=== PATIENT | male | born 1995 | race African-American/Black ===

== ENCOUNTER 2025-04-09 14:36 | Emergency (ER) | payer OTHER, SELFPAY ==
[2025-04-09] VITALS (28 sets, daily range): BP systolic 109–161; BP diastolic 75–110; BMI 32.0
[2025-04-09 15:01] LABS: % Basophils 0.4 % (0-2); % Eosinophils 1.6 % (0-6); % Immature Granulocytes 0.4 % (0-0.5); % Lymphocytes 46.8 % (20.5-51.1); % Monocytes 8.1 % (1.7-9.3); % Neutrophils 42.7 % (42.2-75.2); Absolute Eosinophils 0.1 10^3/uL (0-0.7); Absolute Lymphocytes 2.7 10^3/uL (1.2-3.4); Absolute Monocytes 0.5 10^3/uL (0.1-0.6); Absolute Neutrophils 2.5 10^3/uL (1.4-6.5); Hematocrit 41.9 % (39.0-52.0); Hemoglobin 14.8 g/dL (13.0-18.0); Mean Corp Hgb Conc. 35.3 g/dL (33.0-37.0); Mean Corpuscular Volume 90.5 fL (80.0-94.0); Mean Platelet Volume 8.7 fL (7.4-10.4); Nucleated Red Blood Cells % 0 % (-); Platelet Count 316 10^3/uL (130-400); Red Blood Cell Count 4.63 10^6/uL (4.70-6.10); Red Cell Dist. Width 12.1 % (11.5-14.5); White Blood Cell Count 5.7 10^3/uL (4.8-10.8)
[2025-04-09 15:24] LABS: ALT (SGPT) 53 U/L (0-50); AST (SGOT) 28 U/L (17-59); Albumin 4.8 g/dl (3.5-5.0); Alkaline Phosphatase 63 U/L (38-126); Blood Urea Nitrogen 11 mg/dl (9-20); Calcium 10.3 mg/dl (8.4-10.2); Carbon Dioxide 32 mmol/L (22-30); Chloride 104 mmol/L (98-107); Glucose 102 mg/dl (70-99); Potassium 4.3 mmol/L (3.5-5.1); Sodium 143 mmol/L (135-145); Total Bilirubin 0.6 mg/dl (0.2-1.3); Total Protein 7.9 g/dl (6.3-8.2); eGFR > 60.00
[2025-04-09 15:35] LABS: Troponin I 0.013 ng/ml
--- NOTE | 2025-04-09 18:08 | ED.GENMED ---
History of Present Illness
<SAULO Almaraz Last Filed: 04/10/25 00:10>
General
Chief Complaint: Chest Pain
Source: patient
Exam Limitations: none
Time Seen by Provider: 04/09/25 17:28
Nursing documentation reviewed up to this point in time: agreed with
History of Present Illness
History of Present Illness:
see MDM
Phy Exam
<SAULO Almaraz Last Filed: 04/10/25 00:10>
Physical Exam
Physical Exam:
GENERAL: Alert , in no apparent distress
EYE: pupils equal and reactive
NECK: Supple
ENT: o/p clr, mmm.
CARDIAC: you m . Irregularly irregular, rate controlled
LUNGS: Clear breath sounds bilaterally, no acute respiratory distress, no wheezes/rales/rhonchi
ABDOMEN: Soft, without focal tenderness, no r/g, no cvat, normal bowel sounds
NEUROLOGICAL: Alert and oriented, no focal neuro deficits
SKIN: Warm and dry, skin intact.
MUSCULOSKELETAL: No edema, well perfused. neg alisha's sign
PSYCH: Normal and appropriate interaction.
Scores
<SAULO Almaraz Last Filed: 04/10/25 00:10>
Heart Score for Chest Pain Patients
STEMI patient?: No
History: Slightly or Non-Suspicious
ECG: Nonspecific Repolarization
Age: </= 45 years
Risk Factors: No Risk Factors
Troponin: </= Normal Limit
Heart Score for Chest Pain Patients: 1
Heart Score Risk: 2.5% MACE over next 6 weeks
Course
<SAULO Almaraz Filed: 04/10/25 00:10>
Orders/Labs/Results
Orders:
Orders
04/09/25 14:37
ECG [Electrocardiogram (*1)] Urgent
Reason for Study: Chest Pain
EKG- Treatment ONCE
04/09/25 14:53
Complete Blood Count/With Diff Urgent
Comprehensive Metabolic Panel Urgent
TSH Reflex To Free T4 Urgent
Comment: ADD ON
Troponin I Urgent
04/09/25 17:42
CT Chest PE Study Urgent
Comment:
Reason For Exam: new osnet afib, cp
04/09/25 18:09
Add On- LAB Urgent
Tests Added?: tsh reflex t4
04/09/25 20:25
Propofol [Diprivan] 20 ml .ROUTE .STK-MED
04/09/25 20:54
EKG [Electrocardiogram (*1)] Urgent
Reason for Study: Atrial Fibrillation
EKG- Treatment ONCE
Abnormal Lab Results
04/09/25
14:53
RBC 4.63 L 10^6/uL
(4.70-6.10)
MCH 32.0 H pg
(27.0-31.0)
Carbon Dioxide 32 H mmol/L
(22-30)
Glucose 102 H mg/dl
(70-99)
Calcium 10.3 H mg/dl
(8.4-10.2)
ALT 53 H U/L
(0-50)
04/09/25 14:53
04/09/25 14:53
Vital Signs
Initial and Last Documented VS:
Initial Vital Signs
Temp Resp Pulse Ox
36.8 C 18 100
04/09/25 14:44 04/09/25 14:44 04/09/25 14:44
Last Documented Vital Signs
Temp Pulse Resp BP Pulse Ox
36.8 C 69 16 134/95 100
04/09/25 21:02 04/09/25 21:19 04/09/25 21:19 04/09/25 21:40 04/09/25 21:19
<Taty Sanchez MD - Last Filed: 04/09/25 20:57>
Orders/Labs/Results
Orders:
Orders
04/09/25 14:37
ECG [Electrocardiogram (*1)] Urgent
Reason for Study: Chest Pain
EKG- Treatment ONCE
04/09/25 14:53
Complete Blood Count/With Diff Urgent
Comprehensive Metabolic Panel Urgent
TSH Reflex To Free T4 Urgent
Comment: ADD ON
Troponin I Urgent
04/09/25 17:42
CT Chest PE Study Urgent
Comment:
Reason For Exam: new osnet afib, cp
04/09/25 18:09
Add On- LAB Urgent
Tests Added?: tsh reflex t4
04/09/25 20:25
Propofol [Diprivan] 20 ml .ROUTE .STK-MED
04/09/25 20:54
EKG [Electrocardiogram (*1)] Urgent
Reason for Study: Atrial Fibrillation
EKG- Treatment ONCE
Abnormal Lab Results
04/09/25
14:53
RBC 4.63 L 10^6/uL
(4.70-6.10)
MCH 32.0 H pg
(27.0-31.0)
Carbon Dioxide 32 H mmol/L
(22-30)
Glucose 102 H mg/dl
(70-99)
Calcium 10.3 H mg/dl
(8.4-10.2)
ALT 53 H U/L
(0-50)
04/09/25 14:53
04/09/25 14:53
Vital Signs
Initial and Last Documented VS:
Initial Vital Signs
Temp Resp Pulse Ox
36.8 C 18 100
04/09/25 14:44 04/09/25 14:44 04/09/25 14:44
Last Documented Vital Signs
Temp Pulse Resp BP Pulse Ox
36.8 C 69 16 134/95 100
04/09/25 21:02 04/09/25 21:19 04/09/25 21:19 04/09/25 21:40 04/09/25 21:19
Procedures
<Kaylin Strickland PA-C - Last Filed: 04/10/25 00:10>
Moderate Sedation
ASA Risk Score: Class I
Chart and allergies reviewed: Yes
Consent for anesthesia obtained: Yes
Time out completed (validating right patient & procedure): Yes
Moderate Sedation Start Time(when first medication is given): 20:45
History of difficult intubation: No
Airway free of obstruction: Yes
Patient has a gag reflex: Yes
Patient is able to open mouth: Yes
Patient has no dentures: Yes
Patient has no loose teeth: Yes
Medication administered by Provider during Moderate Sedation: IV Propofol (mg) (70)
Total dose administered: 70
Time drug administered: 20:47
Moderate Sedation Procedure End Time: 20:57
<Kaylin Strickland PA-C - Last Filed: 04/10/25 00:10>
MDM/Problems Addressed
Differential Diagnosis Includes:
se4e MDM
MDM/Problems Addressed:
Note:
CHIEF COMPLAINT(S)
Palpitations and shortness of breath.
HISTORY OF PRESENT ILLNESS
The patient is a 29-year-old male presenting with sudden onset palpitations and difficulty breathing. Symptoms began at approximately 10:30 AM while the patient was seated at a table. The patient reports that he was awake prior to 10:30 AM and
experienced these symptoms suddenly without any prior similar episodes over the past month. The patient denies any significant chest pain but describes a sensation of harder breathing. He does not recall any previous consultation with a
sales office administrator. He mentions the use of a CPAP machine occasionally but without any formal diagnosis of sleep apnea. The patient reports a past medical event in childhood involving a minor heart murmur, for which he may have seen a sales office administrator. He
leads an active lifestyle, running somewhat regularly, and has not smoked but consumes alcohol, averaging three drinks approximately five days a week.
The blood work conducted thus far appears normal. The patient is suspected to experience new-onset atrial fibrillation. Further evaluation with a CT scan of the chest with intravenous contrast is planned to rule out pulmonary embolism, a possible
cause of atrial fibrillation in the context of chest tightness and increased risk for stroke. The patient is currently stable with controlled heart rate and stable blood pressure. The possibility of performing electrical cardioversion was discussed,
should he not spontaneously revert to normal sinus rhythm, to alleviate symptoms and restore rhythm.
SOCIAL HISTORY
- Alcohol use: Approximately three drinks, five days a week.
- Non-smoker.
PHYSICAL EXAM
- Appearance: The patient appears alert and oriented.
- Nursing notes reviewed and vital signs reviewed.
PROBLEM LIST
- Acute: Atrial fibrillation with rapid ventricular response.
PLAN
- Perform a CT scan of the chest with intravenous contrast to rule out pulmonary embolism.
- Consult with a sales office administrator to determine the appropriate management plan, potentially including electrical cardioversion.
- Monitor heart rate and rhythm, ensuring the patients stability.
DIFFERENTIAL DIAGNOSIS
The Differential Diagnosis includes, in no particular order and is not limited to:
- Atrial fibrillation
- Supraventricular tachycardia
- Pulmonary embolism
- Pericarditis
- Myocarditis
- Hyperthyroidism
- Anxiety or panic attack
- Electrolyte imbalance
- Coronary artery disease
- Hypertrophic cardiomyopathy
CARE-UPDATE
04/09/25 - 20:17
The patients recent plot study confirmed no pulmonary embolism. Given the onset of symptoms occurred less than 24 hours ago, the decision is made to proceed with electrical cardioversion to restore normal sinus rhythm and avoid long-term
anticoagulation. The sales office administrator recommended this procedure due to the recent nature of the onset, reducing the likelihood of clots and potential stroke risk. The patient was informed about sedation and potential risks, with reassurance of low
complication rates. An outpatient follow-up with the sales office administrator is planned within 48 hours. Discussed observation admission as an alternative with consideration for an echo, but current approach involves discharge post-procedure with outpatient
follow-up. The patient consented to the procedure and is currently awaiting the setup for cardioversion. The patient has also ordered an Apple Watch for self-monitoring in the future.
04/09/2025 2132 PM
Patient was successfully cardioverted with 200 J during a conscious sedation and synchronized cardioversion procedure with Dr. Sanchez. Patient recovered nicely, was tolerating p.o. and ambulatory. He will be discharged with the chest pain
protocol follow-up with [facility] cardiology. I spoke with Dr. Juaquin ponce regarding this case. Patient postprocedure EKG was normal sinus rhythm
<Kaylin Strickland PA-C - Last Filed: 04/10/25 00:10>
*Pulse Oximetry
Patient hypoxic: no (100)
*Critical Care Note
Total Time (30-74mins, 75-104mins- exclusive of procedures): Not Applicable
ED Attending Note
<Kaylin Strickland PA-C - Last Filed: 04/10/25 00:10>
-
Portions of this chart may have been created with voice recognition software.� Occasional wrong word or��sound alike� substitutions may have occurred due to the inherent limitations of voice recognition software.
<Taty Sanchez MD - Last Filed: 04/09/25 20:57>
ED Attending Note
Patient seen and examined by attending physician: Yes
I performed the substantive portion of visit, reviewed & personally made and approve the management plan that is documented in note by myself or [place].: Yes
ED Attending Note:
Patient has a normal heart rate but irregular rhythm. He is breathing comfortably. He has no leg edema
I personally performed conscious sedation
Discharge Plan
Departure
Patient Disposition: Home (Routine Discharge)
Date of Disposition: 04/09/25
Time of Disposition: 21:33
Patient with high blood pressure during this ER visit?: No
Condition: Fair
Covid-19: Not Applicable
Discharge Problem:
Atrial fibrillation, new onset, History of cardioversion
Instructions: MODERATE SEDATION ADULT, Chest Pain CBC Follow Up
Referrals:
Seth Hinojosa MD [Active, Cardiology] - Follow up in 2-3 days
NONE,* [Family Provider, Internal Medicine]
Stand Alone Forms: Return to Work
Activity Restrictions/Additional Instructions:
You were in an abnormal rhythm called atrial fibrillation. You were successfully cardioverted today. You should follow-up with a sales office administrator, they should give you a phone call within the next 24 to 48 hours to get you an appointment. In the
meantime try to avoid alcohol. Alcohol is a trigger for atrial fibrillation.
Stay hydrated. Return for any worsening symptoms like recurrence of A-fib, shortness of breath, chest pain, passing out etc.
Interventions
Interventions:
*Risk Screen - Suicide Last Done: 04/09/25 14:41
*General Assessment Last Done: 04/09/25 14:41
*Neglect/Abuse Screening Last Done: 04/09/25 14:41
*ED- Fall Risk Assessment Last Done: 04/09/25 16:10
*ED COVID-19 Vaccine History Last Done: 04/09/25 16:10
*Nursing Disposition Last Done: 04/09/25 22:02
ED- Cardiac Assessment Last Done: 04/09/25 16:10
Discharge Date and Time
Discharge Date/Time: 04/09/25 22:05
Print Language: URDU
[2025-04-09 19:13] LABS: TSH Reflex To Free T4 1.07 uIU/ml (0.47-4.68)
== END 2025-04-09 22:05 | disposition home or self-care (01) ==
LOC: EMR 14:36
PROVIDERS: EMERGENCY PHYSICIAN Emergency Medicine
DX: I48.91 Unspecified atrial fibrillation (principal)
CPT/HCPCS: 92960; 99152; 99285; 71275; 80053; 84443; 84484; 85025; 93005; Q9967

== ENCOUNTER → 2025-04-17 13:59 | Outpatient (REF) | payer OTHER, SELFPAY ==
[2025-04-17 16:58] LABS: HDL Cholesterol 69 mg/dl; LDL Cholesterol, Calculated 153 mg/dl; Total Cholesterol 234 mg/dl (50-199); Triglyceride 61 mg/dl (10-149); Very Low Density Lipoprotein 12 mg/dl (0-30)
[2025-04-18 08:20] LABS: Glycohemoglobin (HgbA1c) 5.6 % (4.0-5.6)
== END ==
LOC: RCS 13:59
PROVIDERS: ATTENDING PHYSICIAN Internal Medicine; FAMILY PHYSICIAN Internal Medicine
DX: I48.0 Paroxysmal atrial fibrillation (principal)
CPT/HCPCS: 93017; 36415; 80061; 83036

== ENCOUNTER → 2025-04-21 16:03 | Outpatient (REF) | payer OTHER, SELFPAY | LOC: RCS 16:03 | PROVIDERS: ATTENDING PHYSICIAN Internal Medicine; FAMILY PHYSICIAN Internal Medicine | DX: I48.0 Paroxysmal atrial fibrillation (principal) | CPT/HCPCS: 93306 ==